=== PATIENT | female | born 1985 | race Caucasian/White ===

== ENCOUNTER → 2016-11-18 | Outpatient (CLI) | payer OTHER | END | disposition home or self-care (01) | LOC: C.CPL 14:00 | PROVIDERS: ATTEND Obstetrics & Gynecology Maternal & Fetal Medicine | DX: O28.3 Abnormal ultrasonic finding on antenatal screening of mother (principal); Z3A.33 33 weeks gestation of pregnancy; O09.893 Supervision of other high risk pregnancies, third trimester; O36.93X0 Maternal care for fetal problem, unspecified, third trimester, not applicable or unspecified ==